=== PATIENT | male | born 1975 | race Two or more races ===

== ENCOUNTER 2018-09-26 07:07 | Outpatient (CLI) | payer OTHER ==
[2018-09-26] MEDS ORDERED: FORTAMET1000 MG PO (09:16)
== END 2018-09-26 07:11 | disposition home or self-care (01) ==
LOC: LAB 07:07
DX: E11.9 Type 2 diabetes mellitus without complications (principal)

== ENCOUNTER → 2018-09-26 | Day surgery (SDC) | payer OTHER ==
[~2018-09-26] MED LIST: FORTAMET1000 MG PO
== END | disposition home or self-care (01) ==
LOC: CIR.AMB 09:49 → AMB-ENDOS 17:07 → CIR.AMB 17:15
DX: S31.32XA Laceration with foreign body of scrotum and testes, initial encounter (principal)